=== PATIENT | male | born 1940 | race Caucasian/White ===

== ENCOUNTER → 2017-04-20 | Outpatient (CLI) | payer OTHER, BC ==
[~2017-04-20] MED LIST: ADULT LOW DOSE81 MG; AMLODIPINE PO; ASPIRIN PO; ASPIRIN81 M2 PO; GLUCOSAMINE CH1 EAC9 PO; HYDROCODON-ACE1 EACH PO; HYDROCODONE-AP1 EAC6 PO; IBUPROFEN; IBUPROFEN 200200 M1 PO; ISORDIL5 MG PO; ISOSORBIDE DINIT5 MG PO; LOPRESSOR PO; MELOXICAM7.5 MG PO; MOBIC7.5 MG PO; MULTIVITAMINS; NORVASC 5 MG TAB5 MG PO; OMEPRAZOLE PO; SIMVASTATIN20 MG PO; TIGER BALM OINTM8 GM TP; TOPROL XL50 MG PO; ZOCOR; [UNRECOGNIZED DRUG - OTHER]
== END ==
LOC: RAD 12:26
DX: R06.00 Dyspnea, unspecified (principal)

== ENCOUNTER → 2017-04-25 | Outpatient (CLI) | payer OTHER, BC | LOC: CAT 14:24 | DX: I25.10 Atherosclerotic heart disease of native coronary artery without angina pectoris (principal); K80.20 Calculus of gallbladder without cholecystitis without obstruction; R06.02 Shortness of breath ==

== ENCOUNTER → 2017-05-11 | Outpatient (CLI) | payer OTHER, BC ==
[2017-05-11 09:33] LABS: CREATININE 1.2 mg/dL (0.7-1.3)
== END ==
LOC: CAT 08:50
PROVIDERS: Otolaryngology
DX: K57.30 Diverticulosis of large intestine without perforation or abscess without bleeding (principal); K43.9 Ventral hernia without obstruction or gangrene; N20.0 Calculus of kidney; R59.9 Enlarged lymph nodes, unspecified

== ENCOUNTER → 2017-12-28 | Outpatient (CLI) | payer OTHER, BC | LOC: RAD 14:57 | DX: R06.02 Shortness of breath (principal); Z77.090 Contact with and (suspected) exposure to asbestos ==

== ENCOUNTER → 2018-02-20 | Outpatient (CLI) | payer OTHER, BC ==
[2018-02-20 09:23] LABS: CALCIUM 9.3 mg/dL (8.5-10.1); CREATININE 1.1 mg/dL (0.7-1.3); POTASSIUM 4.2 mmol/L (3.5-5.1)
== END ==
LOC: CAT 05:55
PROVIDERS: Internal Medicine
DX: K57.30 Diverticulosis of large intestine without perforation or abscess without bleeding (principal); K76.0 Fatty (change of) liver, not elsewhere classified; N40.0 Benign prostatic hyperplasia without lower urinary tract symptoms; J98.11 Atelectasis; I25.10 Atherosclerotic heart disease of native coronary artery without angina pectoris

== ENCOUNTER → 2018-11-23 | Outpatient (CLI) | payer OTHER, BC ==
[2018-11-23 08:47] LABS: MCH 31.9 pg (26.0-34.0); MCHC 33.3 g/dL (28.0-37.0); MCV 95.6 fL (80.0-100.0); RBC 4.08 mil/uL (4.50-6.00); RDW 13.1 % (10.5-14.5); WBC 6.3 thou/uL (4.0-11.0)
[2018-11-23 08:51] LABS: URINE BILIRUBIN NEGATIVE (Negative); URINE BLOOD NEGATIVE (Negative); URINE CLARITY CLEAR; URINE COLOR YELLOW; URINE GLUCOSE-RANDOM* NEGATIVE (Negative); URINE KETONES NEGATIVE (Negative); URINE LEUKOCYTES NEGATIVE (Negative); URINE NITRITE NEGATIVE (Negative); URINE PROTEIN (DIPSTICK) NEGATIVE (Negative); URINE SPECIFIC GRAVITY >= 1.030 (1.005-1.035); URINE UROBILINOGEN 0.2 E.U./dl (0.2-1.0)
[2018-11-23 08:59] LABS: CALCIUM 9.1 mg/dL (8.5-10.1); POTASSIUM 4.1 mmol/L (3.5-5.1)
== END ==
LOC: CAT 08:20
PROVIDERS: Internal Medicine
DX: K80.20 Calculus of gallbladder without cholecystitis without obstruction (principal); N28.1 Cyst of kidney, acquired; N40.0 Benign prostatic hyperplasia without lower urinary tract symptoms; K57.92 Diverticulitis of intestine, part unspecified, without perforation or abscess without bleeding; K86.9 Disease of pancreas, unspecified; R19.5 Other fecal abnormalities

== ENCOUNTER → 2018-11-27 | Outpatient (CLI) | payer OTHER, BC | LOC: MRI 12:03 | DX: M51.16 Intervertebral disc disorders with radiculopathy, lumbar region (principal); M43.16 Spondylolisthesis, lumbar region; M48.062 Spinal stenosis, lumbar region with neurogenic claudication ==

== ENCOUNTER → 2019-03-26 | Outpatient (CLI) | payer OTHER, BC | LOC: RAD 10:28 | DX: J98.4 Other disorders of lung (principal); Z77.090 Contact with and (suspected) exposure to asbestos ==

== ENCOUNTER 2019-04-27 15:58 | Emergency (ER) | payer OTHER, BC ==
[~2019-04-27] VITALS: Ht 170.2 cm; Wt 86.2 kg
[2019-04-27 16:50] LABS: URINE BILIRUBIN NEGATIVE (Negative); URINE BLOOD NEGATIVE (Negative); URINE CLARITY CLEAR; URINE COLOR YELLOW; URINE GLUCOSE-RANDOM* NEGATIVE (Negative); URINE KETONES NEGATIVE (Negative); URINE LEUKOCYTES-REFLEX NEGATIVE (Negative); URINE NITRITE-REFLEX NEGATIVE (Negative); URINE PROTEIN (DIPSTICK) NEGATIVE (Negative); URINE SPECIFIC GRAVITY 1.025 (1.005-1.035); URINE UROBILINOGEN 0.2 E.U./dl (0.2-1.0)
[2019-04-27 19:15] LABS: HEMATOCRIT 38.1 % (42.0-52.0); HEMOGLOBIN 13.1 gm/dL (14.0-18.0); MCH 32.8 pg (26.0-34.0); MCHC 34.4 g/dL (28.0-37.0); MCV 95.4 fL (80.0-100.0); RBC 3.99 mil/uL (4.50-6.00); WBC 8.5 thou/uL (4.0-11.0)
[2019-04-27 19:22] LABS: CALCIUM 9.1 mg/dL (8.5-10.1); POTASSIUM 3.5 mmol/L (3.5-5.1)
[2019-04-27 20:12] VITALS: BP 141/75
== END 2019-04-27 20:13 | disposition home or self-care (01) ==
LOC: ER 15:58
PROVIDERS: Emergency Medicine; Physician Assistant
DX: M54.5 Low back pain (principal); I10 Essential (primary) hypertension; K21.9 Gastro-esophageal reflux disease without esophagitis

== ENCOUNTER → 2019-06-18 | Outpatient (CLI) | payer OTHER, BC ==
[2019-06-18 14:26] LABS: HEMOGLOBIN 13.2 gm/dL (14.0-18.0); MCH 32.2 pg (26.0-34.0); MCHC 33.9 g/dL (28.0-37.0); MCV 95.2 fL (80.0-100.0); RBC 4.1 mil/uL (4.50-6.00); RDW 13.2 % (10.5-14.5); WBC 5.6 thou/uL (4.0-11.0)
[2019-06-18 14:39] LABS: CALCIUM 9.4 mg/dL (8.5-10.1); POTASSIUM 3.9 mmol/L (3.5-5.1)
== END ==
LOC: LAB 13:58
PROVIDERS: Internal Medicine
DX: R05 Cough (principal); M47.894 Other spondylosis, thoracic region

== ENCOUNTER → 2019-09-10 | Outpatient (CLI) | payer OTHER, BC ==
--- NOTE | 2019-09-12 09:45 | SLE ---
[facility] [place] [address] POLYSOMNOGRAPHY STUDY Name: KILLIAN MONET Room #: REG [facility]#: [id number] Admission: 09/10/19 Attend Phys: Froilan Lopez MD Discharge: Date of : 42 Report #: [id number] THIS REPORT FOR: //name// CC: Froilan Flores MD [facility] DATE OF SERVICE: 09/10/2019 ATTENDING PHYSICIAN: Dr. Eran Flores. The patient is 79 years old who weighs 185 pounds with a BMI of 28.1. The patient's [place] score was 14. The patient has known history of sleep apnea and has been on CPAP in the past. The patient was referred back for another titration study. During the night study, the patient spent 473 minutes in bed and slept for 245 minutes with a low sleep efficiency of 51%. Sleep latency was 29.5 minutes with a REM latency of 185 minutes. Sleep architecture showed increased stage 1 and stage 2 sleep, absent slow wave sleep and reduced REM sleep, which was 13% of the total sleep time. EKG monitoring revealed an average heart rate of 54 beats per minute. No sustained arrhythmias observed. PLMS were seen at an index of 19.8 per hour and 4.6 per hour caused EEG arousals. The patient was started on CPAP at 7 cm water and titrated up to 9 cm of water. At this final pressure, the patient slept for 113 minutes including 17 minutes of a REM sleep. There was mostly lateral REM sleep. The patient's AHI was reduced to 3.2 per hour and oxygen saturations remained above 91%. IMPRESSION: 1. Sleep apnea diagnosed by previous sleep study. 2. Moderate periodic limb movements of sleep. 3. Reduced sleep efficiency resulting from sleep maintenance insomnia. RECOMMENDATIONS: 1. CPAP at 9 cm water completely eliminated the patient's sleep apnea and should be used on a nightly basis. 2. Follow up in 4-6 weeks to assess compliance with CPAP and to document clinical improvement. 3. Weight loss to the ideal body weight is recommended. 4. Avoid SPECTROSCOPIST depressants. [facility] [address] [place] [address] POLYSOMNOGRAPHY STUDY Name: KILLIAN MONET Room #: REG [facility]#: [id number] Admission: 09/10/19 Attend Phys: Froilan Lopez MD Discharge: Date of : 42 Report #: [id number] 5. Cautioned regarding driving until symptoms of sleep apnea resolve with the use of CPAP. 6. PLMS does not need to be treated unless the patient has symptoms of restless legs during the day. 7. If patient's insomnia does not improve while using CPAP, then it should be further evaluated and treated according to the etiology. <ELECTRONICALLY SIGNED> By: Froilan Lopez MD 09/12/19 0945 1323 [facility] Froilan Lopez MD /sergio
== END ==
LOC: SLEEPLAB 10:14
DX: G47.33 Obstructive sleep apnea (adult) (pediatric) (principal); G47.61 Periodic limb movement disorder

== ENCOUNTER → 2020-04-15 | Outpatient (CLI) | payer OTHER, BC | LOC: SJCVC 09:53 | PROVIDERS: ATTEND Internal Medicine | DX: R00.1 Bradycardia, unspecified (principal); I25.10 Atherosclerotic heart disease of native coronary artery without angina pectoris; I11.0 Hypertensive heart disease with heart failure; I50.32 Chronic diastolic (congestive) heart failure; E78.00 Pure hypercholesterolemia, unspecified; G47.33 Obstructive sleep apnea (adult) (pediatric); K21.9 Gastro-esophageal reflux disease without esophagitis; M19.90 Unspecified osteoarthritis, unspecified site; Z79.82 Long term (current) use of aspirin; Z79.899 Other long term (current) drug therapy; Z82.49 Family history of ischemic heart disease and other diseases of the circulatory system ==

== ENCOUNTER → 2020-10-17 | Outpatient (CLI) | payer OTHER, BC | LOC: SJCVC 09:48 | PROVIDERS: ATTEND Internal Medicine | DX: R00.1 Bradycardia, unspecified (principal); I25.10 Atherosclerotic heart disease of native coronary artery without angina pectoris; I11.0 Hypertensive heart disease with heart failure; I50.32 Chronic diastolic (congestive) heart failure; E78.00 Pure hypercholesterolemia, unspecified; I65.23 Occlusion and stenosis of bilateral carotid arteries; G47.33 Obstructive sleep apnea (adult) (pediatric); K21.9 Gastro-esophageal reflux disease without esophagitis; E78.5 Hyperlipidemia, unspecified; Z79.899 Other long term (current) drug therapy; Z88.8 Allergy status to other drugs, medicaments and biological substances ==

== ENCOUNTER → 2021-04-17 | Outpatient (CLI) | payer OTHER, BC | LOC: SJCVCIMAG 11:28 | PROVIDERS: ATTEND Internal Medicine | DX: I65.23 Occlusion and stenosis of bilateral carotid arteries (principal); I25.10 Atherosclerotic heart disease of native coronary artery without angina pectoris; I11.0 Hypertensive heart disease with heart failure; I50.32 Chronic diastolic (congestive) heart failure; E78.5 Hyperlipidemia, unspecified; K21.9 Gastro-esophageal reflux disease without esophagitis; G47.33 Obstructive sleep apnea (adult) (pediatric); E78.00 Pure hypercholesterolemia, unspecified; Z88.8 Allergy status to other drugs, medicaments and biological substances; Z79.82 Long term (current) use of aspirin; Z79.899 Other long term (current) drug therapy; Z82.49 Family history of ischemic heart disease and other diseases of the circulatory system ==

== ENCOUNTER → 2021-08-25 | Outpatient (CLI) | payer OTHER, BC | LOC: RAD 11:58 | PROVIDERS: ATTEND Internal Medicine | DX: N20.0 Calculus of kidney (principal); I87.8 Other specified disorders of veins; M47.816 Spondylosis without myelopathy or radiculopathy, lumbar region; R10.11 Right upper quadrant pain ==

== ENCOUNTER → 2021-10-22 | Outpatient (CLI) | payer OTHER, BC | LOC: SJCVC 13:43 | PROVIDERS: ATTEND Internal Medicine | DX: I25.10 Atherosclerotic heart disease of native coronary artery without angina pectoris (principal); I50.32 Chronic diastolic (congestive) heart failure; I11.0 Hypertensive heart disease with heart failure; E78.2 Mixed hyperlipidemia; I65.23 Occlusion and stenosis of bilateral carotid arteries; I10 Essential (primary) hypertension; G47.33 Obstructive sleep apnea (adult) (pediatric); E78.00 Pure hypercholesterolemia, unspecified; Z79.82 Long term (current) use of aspirin; Z79.899 Other long term (current) drug therapy; Z88.8 Allergy status to other drugs, medicaments and biological substances; Z82.49 Family history of ischemic heart disease and other diseases of the circulatory system ==

== ENCOUNTER 2021-11-12 17:44 | Inpatient (IN) | payer OTHER, BC ==
[~2021-11-12] VITALS: Ht 170.2 cm; Wt 88.5 kg
[2021-11-12 17:46] VITALS: BP 180/100
[2021-11-12 18:48] LABS: ABSOLUTE NEUTROPHILS 3.8 thou/uL (1.4-8.2); BASOPHILS 1.1 % (0.0-2.0); EOSINOPHILS 2.9 % (0.0-3.0); HEMATOCRIT 41.9 % (42.0-52.0); HEMOGLOBIN 14.1 gm/dL (14.0-18.0); LYMPHOCYTES 29.3 % (24.0-44.0); MCH 32.5 pg (26.0-34.0); MCHC 33.6 g/dL (28.0-37.0); MCV 96.7 fL (80.0-100.0); MONOCYTES 9.4 % (1.0-8.0); PLATELET COUNT 221 thou/uL (150-400); POLYS 57.3 % (36.0-66.0); RBC 4.33 mil/uL (4.50-6.00); WBC 6.6 thou/uL (4.0-11.0)
[2021-11-12 18:52] LABS: CALCIUM 8.9 mg/dL (8.5-10.1); POTASSIUM 3.6 mmol/L (3.5-5.1)
[2021-11-12 19:01] LABS: PROTIME 10.4 Seconds (9.3-11.4)
[2021-11-13] VITALS (8 sets, daily range): BP systolic 132–157; BP diastolic 60–78
[2021-11-13 02:29] LABS: HEMATOCRIT 40.7 % (42.0-52.0); HEMOGLOBIN 13.5 gm/dL (14.0-18.0); MCH 32.2 pg (26.0-34.0); MCHC 33.2 g/dL (28.0-37.0); MCV 97.1 fL (80.0-100.0); RBC 4.19 mil/uL (4.50-6.00); RDW 13.3 % (10.5-14.5); WBC 7.9 thou/uL (4.0-11.0)
[2021-11-13 02:35] LABS: CHOLESTEROL 100 mg/dL (<200); HDL CHOLESTEROL 38 mg/dL (>40); LDL CHOLESTEROL 46 mg/dL (<100); TC:HDL 2.6 Ratio (Not establshd); TRIGLYCERIDE 81 mg/dL (<150); VLDL 16 mg/dL (<40)
[2021-11-13 02:43] LABS: CREATININE 0.9 mg/dL (0.7-1.3); POTASSIUM 3.7 mmol/L (3.5-5.1)
[2021-11-13 02:57] LABS: SERUM ASSESSMENT Clear
--- NOTE | 2021-11-13 16:04 | NUR ---
Chart reviewed and discussed with the care team. Pt admitted with new small rt frontal cva. 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 Recommendations at this time are to return home with his with outpt PT/OT. Pt was indep prior to admission, no assistive device, and driving. is supportive helps with iadl's. Pt's pcp is Dr. Td Moreira. They have 2 steps to enter their ranch style home. Likely dc with outpt therapy. Scripts requested to be given to pt/ at dc and they may contact our outpt dept if they would like to do therapy here. No other cm interventions indicated.
--- NOTE | 2021-11-13 17:02 | 2DMMODE ---
[facility] [place] [address] 2 D/M-MODE ECHOCARDIOGRAM Name: ANASTASIA MONETErendira Carbajal Room #: 170-5 ADM IN M.R.#: [id number] Admission: 11/12/21 Attend Phys: Chen Caldwell Discharge: Date of : 42 Report #: [id number] THIS REPORT FOR: cc: Td Moreira MD, Mark A. MD Mancuso, Gerald M. MD [facility] ~ APPROVED REPORT Study performed: 11/13/2021 13:50:52 EXAM: Comprehensive 2D, Doppler, and color-flow Echocardiogram Patient Location: Observation Room #: ER 5 Status: routine BSA: 2.00 HR: 57 bpm BP: 129/65 mmHg Rhythm: NSR Other Information Study Quality: Adequate Indications Diabetes CAD Hypertension/HDD 2D Dimensions IVSd: 12.00 (7-11mm) LVOT Diam: 23.82 (18-24mm) LVDd: 40.97 mm PWd: 11.70 (7-11mm) Ascending Ao: 36.98 (22-36mm) LVDs: 24.84 (25-40mm) Left Atrium: 33.03 (27-40mm) Aortic Root: 37.74 mm Volumes Left Atrial Volume (Systole) Single Plane 4CH: 19.34 mL Aortic Valve AoV Peak Jay Jay.: 1.26 m/s AO Peak Gr.: 7.43 mmHg LVOT Max P.41 mmHg LVOT Max V: 0.92 m/s [facility] [address] [address] 2 D/M-MODE ECHOCARDIOGRAM Name: KILLIAN MONET Room #: 170-5 [facility] IN ..#: [id number] Admission: 11/12/21 Attend Phys: Chen Olivo Discharge: Date of : 42 Report #: [id number] Vmax: 3.25 cm2 Mitral Valve E/A Ratio: 0.7 MV Decel. Time: 2746.42 ms MV E Max Jay Jay.: 0.34 m/s MV A Jay Jay.: 0.51 m/s MV PHT: 796.46 ms IVRT: 106.11 ms Pulmonary Valve PV Peak Jay Jay.: 1.21 m/s PV Peak Gr.: 5.86 mmHg AZ End Vmax: 0.87 m/s Pulmonary Vein P Vein S: 0.71 m/s P Vein A: 0.40 m/s P Vein D: 0.34 m/s P Vein A Dur.: 115.3 msec P Vein S/D Ratio: 2.09 Tricuspid Valve TR Peak Jay Jay.: 2.46 m/s RAP Estimate: 7.00 mmHg TR Peak Gr.: 24.16 mmHg RVSP: 31.00 mmHg Left Ventricle The left ventricle is normal size. There is normal LV segmental wall motion. Borderline concentric left ventricular hypertrophy. The left ventricular systolic function is normal. The left ventricular ejection fraction is within the normal range. LVEF is 60-65%. Transmitral Doppler flow pattern suggests impaired LV relaxation. Right Ventricle The right ventricle is normal size. The right ventricular systolic function is normal. Atria The left atrium size is normal. The right atrium size is normal. Aortic Valve Aortic valve is trileaflet. No aortic regurgitation is present. There is no aortic valvular stenosis. There is normal aortic valve excursion. Mitral Valve The mitral valve is normal in structure. Mild mitral regurgitation. [facility] [place] [address] 2 D/M-MODE ECHOCARDIOGRAM Name: KILLIAN MONET Room #: 170-5 ADM IN .R.#: [id number] Admission: 11/12/21 Attend Phys: Chen Olivo Discharge: Date of : 42 Report #: [id number] No evidence of mitral valve stenosis. Tricuspid Valve The tricuspid valve is normal in structure. Mild tricuspid regurgitation. PAP 31 mmHg Pulmonic Valve The pulmonary valve is normal in structure. There is no pulmonic valvular regurgitation. Great Vessels The aortic root is normal in size. IVC is normal in size and collapses >50% with inspiration. Pericardium There is no pericardial effusion. There is no pleural effusion. <Conclusion> The left ventricle is normal size. Borderline concentric left ventricular hypertrophy. LVEF is 60-65%. Transmitral Doppler flow pattern suggests impaired LV relaxation. The right ventricle is normal size. The left atrium size is normal. Aortic valve is trileaflet. Mild mitral regurgitation. Mild tricuspid regurgitation. PAP 31 mmHg The aortic root is normal in size. There is no pericardial effusion. <ELECTRONICALLY SIGNED> By: Zeb Marin MD, FACC 11/13/211701 01 01 Zeb Marin MD, FACC /INF
[2021-11-14 03:06] LABS: GLYCOHEMOGLOBIN (HGB A1C) 6.4 % (4.8-5.6)
[2021-11-14 03:32] VITALS: BP 120/56
--- NOTE | 2021-11-14 03:39 | NUR ---
RECEIVED CARE OF THIS PATIENT AT 1900. PATIENT ALERT AND ORIENTED X4. UP WITH SBA. IS SR ON TELE. DENIES PAIN. SLEPT MOST OF NIGHT.
[2021-11-14 07:43] VITALS: BP 130/75
--- NOTE | 2021-11-14 08:42 | NUR ---
pt home today or tomorrow and does not feel like he needs ot
[2021-11-14] MEDS ORDERED: CLOPIDOGREL75 MG PO (10:45)
[2021-11-14] MEDS ORDERED: ADULT LOW DOSE81 MG PO (10:46)
--- NOTE | 2021-11-14 11:02 | NUR ---
NOTIFIED PT'S NURSE (ZARINA) THAT DR PUT IN ORDERS FOR PT TO DC HOME WITH HH, NURSE SAID PT WAS WANTING TO DO HH AND OUTPT THERAPY I,LET HER KNOW THAT PT HAS TO BE HOME BOUND IF HH IS ORDERED AND WILL NEED TO DO THERAPY AT HOME SHE SAID PT IS WANTING OUTPT THERAPY HERE AT [facility] SO NO HH WILL BE NEEDED SHE WILL FAX FACESHEET AND SCRIPT TO OUTPT THERAPY FAX#[phone] AND THEY WILL CALL PT TO ARRANGE THERAPY TIMES.
[2021-11-14 11:29] VITALS: BP 131/56
[2021-11-14 13:47] VITALS: BP 157/75
--- NOTE | 2021-11-14 15:54 | NUR ---
PATIENT RESTING IN BED TODAY WITHOUT ANY SIGNS OF DISTRESS. DENIES ANY CP OR SOA. MEDICATIONS GIVEN. 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 PATIENT GIVEN SCRIPTS FOR NEW MEDS IN ADDITION TO OUTPATIENT PT/OT. PT/OT RX FAXED TO [facility]. PHONE NUMBER GIVEN TO PATIENT FOR BACK UP. DISCHARGE PAPERWORK AND MEDICARE FORM SIGNED. IV AND TELE REMOVED. PATIENT WHEELED TO THE ER ENTRANCE AND DRIVEN HOME BY HIS . PT STATES THAT HE FEELS BETTER THAN HE DID WHEN HE ARRIVED.
== END 2021-11-14 14:00 | disposition home or self-care (01) | DRG 65 ==
LOC: ER 17:44 → EROBS 19:47 → ADMC 19:47 → EROBS 11-13 08:23 → 2N 11-13 17:54
PROVIDERS: Nurse Practitioner Family; Psychiatry & Neurology Neurology; Student in an Organized Health Care Education/Training Program; ADMIT Hospitalist; ATTEND Hospitalist
DX: I63.9 Cerebral infarction, unspecified (principal); G81.94 Hemiplegia, unspecified affecting left nondominant side; I10 Essential (primary) hypertension; I25.10 Atherosclerotic heart disease of native coronary artery without angina pectoris; K21.9 Gastro-esophageal reflux disease without esophagitis; G47.33 Obstructive sleep apnea (adult) (pediatric); E78.5 Hyperlipidemia, unspecified; N40.0 Benign prostatic hyperplasia without lower urinary tract symptoms; R73.03 Prediabetes; Z20.822 Contact with and (suspected) exposure to COVID-19; M17.0 Bilateral primary osteoarthritis of knee; Z87.442 Personal history of urinary calculi; Z79.899 Other long term (current) drug therapy; Z82.49 Family history of ischemic heart disease and other diseases of the circulatory system; Z83.6 Family history of other diseases of the respiratory system; Z79.82 Long term (current) use of aspirin; Z98.42 Cataract extraction status, left eye; Z98.41 Cataract extraction status, right eye
CPT/HCPCS: 10040; 10194

== ENCOUNTER → 2021-12-30 | Outpatient (CLI) | payer OTHER, BC ==
[~2021-12-30] MED LIST changes: +ADULT LOW DOSE81 MG PO; +CLOPIDOGREL75 MG PO
== END ==
LOC: SJCVC 12:31
PROVIDERS: ATTEND Internal Medicine
DX: I25.10 Atherosclerotic heart disease of native coronary artery without angina pectoris (principal); I50.32 Chronic diastolic (congestive) heart failure; I11.0 Hypertensive heart disease with heart failure; E78.5 Hyperlipidemia, unspecified; I65.23 Occlusion and stenosis of bilateral carotid arteries; I63.9 Cerebral infarction, unspecified; M48.02 Spinal stenosis, cervical region; G47.33 Obstructive sleep apnea (adult) (pediatric); E78.00 Pure hypercholesterolemia, unspecified; Z88.8 Allergy status to other drugs, medicaments and biological substances; Z79.82 Long term (current) use of aspirin; Z79.899 Other long term (current) drug therapy; Z82.49 Family history of ischemic heart disease and other diseases of the circulatory system